=== PATIENT | female | born 1960 | race Caucasian/White ===

== ENCOUNTER 2017-11-02 09:47 | Emergency (ER) | payer OTHER ==
[2017-11-02 10:05] VITALS: BP 166/106
--- NOTE | 2017-11-02 11:00 | UC ---
Skin Complaint HPI - History of Current Complaint Chief Complaint: UCAllergicReaction Time Seen by Provider: 11/02/17 10:28 Stated Complaint: RASH Hx Obtained From: Patient Hx Last Menstrual Period: 12/11/12 ?: No Onset/Duration: Sudden Onset, Lasting Days Skin Exposure Onset/Duration: Days Ago Onset Severity: Moderate Current Severity: Mild Pain Intensity: 0 Location: Diffuse Character: Pruritus, Redness Aggravating Factor(s): Nothing Alleviating Factor(s): Antihistamines Associated Signs & Symptoms: Positive: Negative Related History: Recent change in medication - Allergy/Home Medications Allergies/Adverse Reactions: Allergies Allergy/AdvReac Type Severity Reaction Status Date / Time amoxicillin Allergy Severe Hives Verified 10/31/17 09:37 azithromycin Allergy Severe Hives Verified 10/31/17 09:37 clarithromycin Allergy Severe Hives Verified 10/31/17 09:37 red dye Allergy Severe Hives Verified 10/31/17 09:37 Sulfa (Sulfonamide Allergy Severe Hives Verified 10/31/17 09:37 Antibiotics) clindamycin Allergy anaph Verified 11/02/17 10:06 hydrocodone Allergy Nausea And Verified 10/31/17 09:37 Vomiting flexeril Allergy Severe Hives Uncoded 10/31/17 09:37 guafenisin Allergy Severe Hives Uncoded 10/31/17 09:37 latex Allergy Severe Rash And Uncoded 10/31/17 09:37 Itching penicllin Allergy Severe Hives Uncoded 10/31/17 09:37 metrondiazole Allergy Hives Uncoded 10/31/17 09:37 Review of Systems Constitutional: Negative Eyes: Eye Redness Respiratory: Negative All Other Systems Reviewed And Are Negative: Yes PMH/Surg Hx/FS Hx/Imm Hx Endocrine History: Diabetes - Surgical History Surgical History: Yes Surgery Procedure, Year, and Place: right foot 2004-pinned, 2010-left shoulder. 05/2013 RIGHT ROTATOR CUFF REPAIR [place]. 1989 D+C - Family History Known Family History: Negative: Cardiac Disease, Hypertension, Diabetes Family History: No FHx of breast CA - Social History Alcohol Use: Occasionally Alcohol Amount: 1/WEEK Substance Use Type: None Smoking Status (MU): Never Smoked Tobacco - Immunization History Most Recent Influenza Vaccination: none Physical Exam Triage Information Reviewed: Yes Vital Signs: Initial Vital Signs Temp 98 F 11/02/17 10:02 Pulse 65 06/23/18 10:02 Resp 16 11/02/17 10:02 BP 166/106 11/02/17 10:02 Pulse Ox 100 11/02/17 10:02 Vital Signs Reviewed: Yes Eyes: Positive: Conjunctiva Clear, Other: - mild bipalpebral edema ENT: Positive: Hearing grossly normal, Pharynx normal Neck: Positive: Supple, Nontender, No Lymphadenopathy Respiratory: Positive: Chest non-tender, Lungs clear, Normal breath sounds, No respiratory distress Cardiovascular: Positive: RRR, No Murmur, Pulses Normal, Brisk Capillary Refill Abdomen Description: Positive: No Organomegaly, Soft, Bruit Bowel Sounds: Positive: Present Musculoskeletal Exam: Normal Skin Exam: Other - generalized hives on extremities and trunk Course/Dx - Course Course Of Treatment: Patient who was treated for urticaria 3 days ago after taking clindamycin, patient on day 2 of prednisone, she states she continues to have the itchy rash and this morning her eyes were swollen, but swelling reversed after prednisone dose. Discussed with patient change in medications, zantac will substitute pepcid, atarax will substitute benadryl, continue prednison, start singulair, and stop all unnecessary supplements and vitamins. F /u with yard truck driver/PCP if urticaria persists for other manager intermediate medications - Diagnoses Provider Diagnoses: elevated BP without history of HTN. Urticaria Discharge - Sign-Out/Discharge Documenting (check all that apply): Discharge/Admit/Transfer - Discharge Plan Condition: Good Disposition: HOME Prescriptions: hydrOXYzine HCL TAB* [Atarax 25 MG TAB*] 25 mg PO TID PRN 10 Days #30 tab PRN Reason: Itching Montelukast Sodium TAB* [Singulair 10 MG TAB*] 10 mg PO BEDTIME 30 Days #30 tab Ranitidine TAB (NF) [Zantac TAB (NF)] 300 mg PO DAILY #30 tab Patient Education Materials: Ranitidine (By mouth), Hydroxyzine (By mouth), Montelukast (By mouth), Urticaria (ED) Referrals: Lg Casey MD [Primary Care Provider] - Additional Instructions: Since zantac has worked in the past, please stop pepcid and start zantac 300mg once a day Stop benadryl. INstead, you will get a new antihistamine hydroxyzine 25mg three times a day You will get a new medication called monterlukast 10mg to be taken at night Continue the prednisone Stop all vitamins and supplements - Billing Disposition and Condition Condition: GOOD Disposition: Home
== END 2017-11-02 11:09 | disposition home or self-care (01) ==
LOC: UCEAST 09:47
DX: L50.9 Urticaria, unspecified (principal); R03.0 Elevated blood-pressure reading, without diagnosis of hypertension; E11.9 Type 2 diabetes mellitus without complications; Z88.0 Allergy status to penicillin; Z88.2 Allergy status to sulfonamides; Z88.1 Allergy status to other antibiotic agents; Z91.040 Latex allergy status
CPT/HCPCS: 99212; G0463

== ENCOUNTER → 2018-12-03 10:04 | Day surgery (SDC) | payer OTHER ==
[~2018-12-03 10:04] MED LIST: Acetaminophen IV 1GM/100ML * 100 ML ONE; Buffered Lidocaine 1% SYRIN* 1 ML/SYRINGE INTRADERM ONE; Clindamycin 900 MG IVPREMIX(* 0 MG/0 ML SDV IV ONE; Dexamethasone IV* 4 MG/ML 1 ML (4 MG) ONE; DiMENhydriNATE IV* 50 MG/ML VIAL IV PUSH PRN; EPHEDrine (Pressors)* 50 MG/ML VIAL ONE; Glycopyrrolate IV* 0.2 MG/ML 1 ML VIAL ONE; HYDROmorphone INJ1* 1 MG/ML SYRINGE ONE; Ketorolac INJ* 30 MG/ML 1 ML VIAL ONE; Lactated Ringers 1000 ML Bag* 1,000 ML IV SCH; Lidocaine 2% PF * 5 ML VIAL ONE; Metoclopramide IV* 5 MG/ML 2 ML VIAL ONE; Midazolam* 1 MG/ML 2 ML VIAL (2 MG) ONE; Naloxone* 0.4 MG/ML 1 ML VIAL IV PRN; Neostigmine Methylsulfate* 1 MG/ML 10 ML VIAL (1 mg/ml) ONE; Ondansetron INJ* 2 MG/ML VIAL ONE; Propofol* 10 MG/ML 20 ML BTL ONE; Rocuronium* 10 MG/ML VIAL ONE; ceFAZolin 2 GM in NS PREMIX(*) 2 GM/100 ML BAG IVPB ONE; fentaNYL* 50 MCG/ML 2 ML VIAL (100 MCG VIAL) ONE; oxyCODONE TAB* 5 MG TAB ONE
[2018-12-03] MEDS: HYDROmorphone INJ1* 1 MG/ML SYRINGE IV PRN ×5 (14:51→15:12)
[2018-12-03] MEDS: oxyCODONE TAB* 5 MG TAB PO PRN ×2 (14:51→15:13)
[2018-12-03 15:37] VITALS: BP 145/97
--- NOTE | 2018-12-04 01:02 | OP ---
CC: PCP * DATE OF OPERATION: 12/03/18 - SDS DATE OF : 62 SURGEON: Tina Noriega MD. POWER ORIGINATOR: MARY Pacheco. An assistant facility manager was needed for the rotator cuff repair portion of this case. ANESTHESIOLOGIST: Dr. Merino. ANESTHESIA: General, interscalene block. 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 POST-OP DIAGNOSES: Left shoulder posttraumatic arthritis with partial- thickness tear of the rotator cuff, loose body, and retained hardware. OPERATIVE PROCEDURE: Left shoulder arthroscopy with: 1. Extensive glenohumeral debridement with acromioplasty. 2. Removal of loose body greater than 5 mm. 3. Subacromial decompression with acromioplasty. 4. Rotator cuff repair using Regeneten patch. 5. Lysis of adhesions. INDICATIONS: Earnestine Balbuena is a 58-year-old female with a complicated shoulder history in that she had a traumatic glenoid fracture that was fixed with an ORIF in 2011. She subsequently underwent frozen shoulder and had lysis of adhesions. She, in the last 6 months, has had significant pain which is laterally based pain and loss of motion. After extensive discussion of the risks, failing conservative management including physical therapy, antiinflammatories, ice and heat, she has elected to proceed with surgical treatment. We did talk about how she is a candidate for replacement and removal of hardware, but that is not what she wants to consider right now. She is also describing rotator cuff related pain. We talked about arthroscopic debridement as an option as she is very very young. Risks and benefits were discussed at length, which include, but not limited to bleeding; infection; damage to nerves, vessels, surrounding structures; wound nonhealing; persistent pain; need for further surgery; scarring; stiffness; incomplete relief of symptoms; risk of anesthesia. IMPLANTS USED: One Regeneten patch, size medium. DESCRIPTION OF PROCEDURE: The patient was greeted in the preoperative area by the attending surgeon. The correct extremity was marked and consent was confirmed. The patient underwent interscalene nerve block by anesthesiologist after which she was brought back to the operating suite where she was placed in supine position on the operating table. She then underwent general anesthesia with endotracheal intubation, after which she was placed in the right lateral decubitus position with an axillary roll and all bony prominences padded, she was secured with a pegboard. The left shoulder was then prepped and draped in the usual sterile fashion, beginning with chlorhexidine soap scrub and alcohol wipe and final prep with ChloraPrep. After appropriate surgical pause indicating site, side, procedure, and administration of antibiotics, a standard postero-lateral portal was then made sharply with an 11 blade. The scope was introduced into the joint, joint was examined. There was abundant synovitic changes and evidence of significant scar tissue, high-grade partial-thickness tearing of the undersurface of the supraspinatus tendon. The biceps was not visualized. There was a significant amount of scar tissue between the labrum and the capsule. There was grade 4 changes in the glenohumeral joint. One anterior portal was made in an outside fashion. There was abundant thick scar tissue that was present from a previous open surgery. Getting through this was quite challenging. A cannula was then placed. The shaver was used to debride back the anterior posterior and superior labrum. There was evidence of a previous metal screw that was placed that did not appear to be interfering in function, was not broken, but it was in the anterior aspect of the glenoid. The anterior posterior and superior labrum was debrided back. There was abundant scar tissue present. The electrocautery device was used to release some of the scar tissue anteriorly specifically. There was also evidence of a loose body that was identified and this was about 5 to 6 mm and was removed. Once this intraarticular work was completed, attention was directed to the subacromial space. With the scope in the subacromial space, the lateral portal was made in an outside- in fashion. The shaver was used to debride back the abundant tight bursa that was present. The undersurface of the acromion was skeletonized using electrocautery device. The 4.0 oval rosita was used to do an acromioplasty and to remove the anterolateral spur. After this was done, the cuff was gently probed. There was no evidence of full-thickness tear. Decision was made to treat her rotator cuff repair using a Regeneten patch. The Regeneten patch was then brought to the field. Size medium was chosen and placed under arthroscopic visualization. Through a second stab incision, a cannula was placed and medial jeanette were used to secure to the rotator cuff and then laterally the PEEK jeanette were used to secure to the bone. Final images were obtained. The wound was copiously irrigated with sterile saline. The portals were closed with 3-0 nylon. Sterile dressings were applied. A regular sling was applied. She was awoken from anesthesia and transferred to PACU in stable condition. POSTOPERATIVE PLAN: She will be nonweightbearing. She will start physical therapy right away. She will be discharged on pain medication and antibiotics to the degree of surgery. DVT prophylaxis was considered but deferred due to no previous personal history or family history. [id number]/[facility] #: [id number] [facility]
== END | disposition home or self-care (01) ==
LOC: OR 10:04
PROVIDERS: ATTEND Orthopaedic Surgery
DX: S46.012A Strain of muscle(s) and tendon(s) of the rotator cuff of left shoulder, initial encounter (principal); M19.112 Post-traumatic osteoarthritis, left shoulder; M25.512 Pain in left shoulder; Z88.0 Allergy status to penicillin; Z88.8 Allergy status to other drugs, medicaments and biological substances; E11.9 Type 2 diabetes mellitus without complications; Z79.84 Long term (current) use of oral hypoglycemic drugs; G89.18 Other acute postprocedural pain; X58.XXXA Exposure to other specified factors, initial encounter; Y92.9 Unspecified place or not applicable
CPT/HCPCS: A9270-GY; C1713; J0690; J1100; J1170; J1885; J2250; J2405; J2704; J2710; J2765; J3010

== ENCOUNTER 2019-03-11 05:36 | Inpatient (IN) | payer OTHER ==
[~2019-03-11 05:36] MED LIST changes: -Acetaminophen IV 1GM/100ML * 100 ML ONE; -Clindamycin 900 MG IVPREMIX(* 0 MG/0 ML SDV IV ONE; -Dexamethasone IV* 4 MG/ML 1 ML (4 MG) ONE; -DiMENhydriNATE IV* 50 MG/ML VIAL IV PUSH PRN; -EPHEDrine (Pressors)* 50 MG/ML VIAL ONE; -Glycopyrrolate IV* 0.2 MG/ML 1 ML VIAL ONE; -HYDROmorphone INJ1* 1 MG/ML SYRINGE ONE; -Ketorolac INJ* 30 MG/ML 1 ML VIAL ONE; -Lactated Ringers 1000 ML Bag* 1,000 ML IV SCH; -Lidocaine 2% PF * 5 ML VIAL ONE; -Metoclopramide IV* 5 MG/ML 2 ML VIAL ONE; -Midazolam* 1 MG/ML 2 ML VIAL (2 MG) ONE; -Naloxone* 0.4 MG/ML 1 ML VIAL IV PRN; -Neostigmine Methylsulfate* 1 MG/ML 10 ML VIAL (1 mg/ml) ONE; -Ondansetron INJ* 2 MG/ML VIAL ONE; -Propofol* 10 MG/ML 20 ML BTL ONE; -Rocuronium* 10 MG/ML VIAL ONE; -ceFAZolin 2 GM in NS PREMIX(*) 2 GM/100 ML BAG IVPB ONE; -fentaNYL* 50 MCG/ML 2 ML VIAL (100 MCG VIAL) ONE; -oxyCODONE TAB* 5 MG TAB ONE
--- OUTSIDE RECORDS SUMMARY | 2019-03-11 05:40 | XMS REPORT | Continuity of Care Document ---
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 Onset: 02/23/2015 Localized, primary osteoarthritis of the Tina Noriega MD Onset: 10/23/2018 shoulder region Strain of rotator cuff capsule Tina Noriega MD Onset: 10/23/2018 Rotator cuff tear arthropathy Tina Noriega MD Onset: 01/13/2019 Social History Type Date Description Comments Sex Unknown ETOH Use Occasionally consumes alcohol Tobacco Use Start: Unknown Patient has never smoked Smoking Status Reviewed: 01/13/19 Patient has never smoked Allergies, Adverse Reactions, Alerts Active Allergies Reaction Severity Comments Date Sulfa Antibiotics 02/23/2015 Penicillins 02/23/2015 Trimox 02/23/2015 Amoxicillin 02/23/2015 Zithromax 02/23/2015 Metronidazole 02/23/2015 Guaifenesin 02/23/2015 Latex 02/23/2015 Flexeril 02/23/2015 Red Dye 02/23/2015 Medications Active Medications SIG Qnty Indications Ordering Provider Date Alegra qd Unknown Nasacort Allergy 1 spray in each Unknown 24HR nostril daily prn 55mcg/Act Aerosol Meloxicam Take 1 Tablet By Unknown 7.5mg Mouth Every Day For Tablets Pain And Inflamation as Needed. Take With Food Olopatadine HCL Instill 1 Drop Into Unknown 0.2% Affected Eye Every Solution Day as Needed For Allergies Metformin HCL Unknown 500mg Tablets Hydroxyzine HCL Take 1 Tablet By Unknown 25mg Mouth Three Times A Tablets Day as Needed For Itching-Stop Benadryl History Medications Percocet 1 tabs by mouth 20tabs Tina Noriega MD 12/03/2018 - 5-325mg every 4-6 hours as 01/12/2019 Tablets needed pain Keflex take 1 tab by 12caps Tina Noriega MD 12/03/2018 - 500mg Capsules mouth four times a 01/12/2019 day x 3 days post op Medications Administered in Office Medication SIG Qnty Indications Ordering Provider Date Triamcinolone (Kenalog) Tina Noriega MD 10/23/2018 Injection Immunizations Description No Information Available Vital Signs Date Vital Result Comment 01/13/2019 8:16am Height 60 inches 5'0" Weight 225.00 lb Heart Rate 87 /min BP Systolic 144 mmHg BP Diastolic 80 mmHg Body Temperature 99.0 F Pain Level 5 BMI (Body Mass Index) 43.9 kg/m2 12/15/2018 8:08am Height 60 inches 5'0" Weight 225.00 lb BP Systolic 138 mmHg BP Diastolic 82 mmHg Respiratory Rate 18 /min Body Temperature 99.0 F Pain Level 0 BMI (Body Mass Index) 43.9 kg/m2 Results Test Date Facility Test Result H/L Range Note Laboratory test 12/03/2018 [facility] 130 mg/dL High 70-100 [address] [place] [address] [phone] Laboratory test 12/03/2018 [facility] 112 mg/dL High 70-100 [address] [place], [place] [id number] [phone] Allopathic Doctor: [id number] Allopathic Doctor: [id number] Procedures Date Code Description Status 12/03/2018 41974 Arthroscopy Shoulder,W/Rotator Cuff Repair Completed 12/03/2018 49844 Arthroscopy Shoulder,W/Rotator Cuff Repair Completed 12/03/2018 67556 Arthroscopy,Shoulder Decompression Of Subacromial Space Completed W/Acromio 12/03/2018 33161 Arthroscopy,Shoulder Decompression Of Subacromial Space Completed W/Acromio 10/23/2018 07576 Inj/Aspir Major JT Or Bursa W/ US Completed Medical Devices Description No Information Available Encounters Type Date Location Provider Dx Diagnosis Office Visit 11/11/2018 Viola Noriega MD S46.012A Strain of 1:[facility]p [facility]/tend the rotator cuff of left shoulder, init M19.112 Post-traumatic osteoarthritis, left shoulder M25.512 Pain in left shoulder Office Visit 10/23/2018 8:45a Orthopedic Tina Noriega S46.012A Strain of [facility] av[facility]/tend the [facility] rotator cuff of left shoulder, init M19.112 Post-traumatic osteoarthritis, left shoulder Office Visit 10/07/2018 1:00p Orthopedic Tina Noriega M25.512 Pain in left [facility] S46.012A Strain of [place]/tend the rotator cuff of left shoulder, init M19.012 Primary osteoarthritis, left shoulder Assessments Date Code Description Provider 01/13/2019 M19.112 Post-traumatic osteoarthritis, left Tina Noriega MD shoulder 12/15/2018 S46.012D Strain of muscle(s) and tendon(s) of the Zina Conn PA-C rotator cuff of left shoulder, subsequent encounter 12/15/2018 M19.112 Post-traumatic osteoarthritis, left MARY Pacheco shoulder 12/03/2018 S46.012A Strain of muscle(s) and tendon(s) of the Zina Conn PA-C rotator cuff of lef 12/03/2018 M19.112 Post-traumatic osteoarthritis, left Tina Noriega MD shoulder 12/03/2018 M19.112 Post-traumatic osteoarthritis, left MARY Pacheco shoulder 12/03/2018 S46.012A Strain of muscle(s) and tendon(s) of the Tina Noriega MD rotator cuff of lef 11/11/2018 S46.012A Strain of muscle(s) and tendon(s) of the Tina Noriega MD rotator cuff of lef 11/11/2018 M19.112 Post-traumatic osteoarthritis, left Tina Noriega MD shoulder 11/11/2018 M25.512 Pain in left shoulder Tina Noriega MD 10/23/2018 S46.012A Strain of muscle(s) and tendon(s) of the Tina Noriega MD rotator cuff of lef 10/23/2018 M19.112 Post-traumatic osteoarthritis, left Tina Noriega MD shoulder 10/07/2018 M25.512 Pain in left shoulder Tina Noriega MD 10/07/2018 S46.012A Strain of muscle(s) and tendon(s) of the Tina Noriega MD rotator cuff of [facility] 10/07/2018 M19.012 Primary osteoarthritis, left shoulder Tina Noriega MD Plan of Treatment Future Appointment(s):02/12/2019 8:15 am - Tina Noriega MD at [facility]01/13/2019 - Tina Noriega MDM19.112 Post-traumatic osteoarthritis, left shoulderFollow up:Follow up: 4 weeks Functional Status Description No Information Available Mental Status Description No Information Available Referrals Description No Information Available
--- OUTSIDE RECORDS SUMMARY | 2019-03-11 05:40 | XMS REPORT | Continuity of Care Document ---
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 Problems Provider Date Common peroneal [...] Patient has never smoked Smoking Status Reviewed: 02/26/19 Patient has never smoked Allergies, Adverse Reactions, Alerts Active Allergies Reaction Severity Comments Date Sulfa Antibiotics 02/23/2015 Penicillins 02/23/2015 Trimox 02/23/2015 Amoxicillin 02/23/2015 Zithromax 02/23/2015 Metronidazole 02/23/2015 Guaifenesin 02/23/2015 Latex 02/23/2015 Flexeril 02/23/2015 Red Dye 02/23/2015 Medications Active Medications SIG Qnty Indications Ordering Provider Date Alegra qd Unknown Nasacort Allergy 24HR 1 spray in each Unknown nostril daily prn 55mcg/Act Aerosol Olopatadine HCL Instill 1 Drop Into Unknown [...] Available Vital Signs Date Vital Result Comment 02/26/2019 9:02am Height 60 inches 5'0" Weight 211.00 lb Heart Rate 102 /min BP Systolic 142 mmHg BP Diastolic 82 mmHg Body Temperature 99.0 F Pain Level 2 BMI (Body Mass Index) 41.2 kg/m2 01/13/2019 8:16am Height 60 inches 5'0" Weight 225.00 lb Heart Rate 87 /min BP Systolic 144 mmHg BP Diastolic 80 mmHg Body Temperature 99.0 F Pain Level 5 BMI (Body Mass Index) 43.9 kg/m2 Results Test Date Facility Test Result H/L Range Note Laboratory test 12/03/2018 [facility] 130 mg/dL High 70-100 [address] [place] [address] [phone] Laboratory test 12/03/2018 [facility] 112 mg/dL High 70-100 [address] [place] [address] [phone] Plastic Roller: [id number] 2 Plastic Roller: [id number] Procedures Date Code Description Status 12/03/2018 00639 Arthroscopy Shoulder,W/Rotator Cuff Repair Completed 12/03/2018 69988 Arthroscopy Shoulder,W/Rotator Cuff Repair Completed 12/03/2018 33373 Arthroscopy,Shoulder Decompression Of Subacromial Space Completed W/Acromio 12/03/2018 80126 Arthroscopy,Shoulder Decompression Of Subacromial Space Completed W/Acromio 10/23/201866351 Inj/Aspir Major JT Or Bursa W/ US Completed Medical Devices Description No Information Available Encounters Type Date Location Provider Dx Diagnosis Office Visit 11/11/2018 Rica Noriega MD S46.012A Strain of 1:15p at [facility] musc/tend the rotator cuff of left shoulder, init M19.112 Post-traumatic osteoarthritis, left shoulder M25.512 Pain in left shoulder Office Visit 10/23/2018 8:45a Rica Noriega S46.012A Strain of at [facility] musc/tend the rotator cuff of left shoulder, init M19.112 Post-traumatic osteoarthritis, left shoulder Office Visit 10/07/2018 1:00p Rica Noriega M25.512 Pain in left at [facility] MD shoulder S46.012A Strain of [place]/tend the rotator cuff of left shoulder, init M19.012 Primary osteoarthritis, left shoulder Assessments Date Code Description Provider 02/26/2019 M19.112 Post-traumatic osteoarthritis, left Tina Noriega MD shoulder 02/26/2019 S46.012D Strain of muscle(s) and tendon(s) of the Tina Noriega MD rotator cuff of left shoulder, subsequent encounter 01/15/2019 M19.112 Post-traumatic osteoarthritis, left Tina Noriega MD shoulder 01/13/2019 M19.112 Post-traumatic osteoarthritis, left Tina Noriega MD shoulder 01/13/2019 Z47.89 Encounter for other orthopedic aftercare Tina Noriega MD 12/15/2018 S46.012D Strain of muscle(s) and tendon(s) [...] the Tina Noriega MD rotator cuff of [facility] 10/07/2018 M19.012 Primary osteoarthritis, left shoulder Tina Noriega MD Plan of Treatment Future Appointment(s):03/24/2019 8:45 am - Tina Noriega MD at [facility] at [id number]/11/2019 7:30 am - Zina Conn PA-C at [facility] at [id number]/11/2019 7:30 am - Tina Noriega MD at [facility] at [id number]/26/2019 - Tina Noriega, MDM19.112 Post-traumatic osteoarthritis, left shoulderFollow up:Follow up: 10-14 days post opS46.012D Strain of muscle(s) and tendon(s) of the rotator cuff of left shoulder, subsequent encounter Functional Status Description No Information Available Mental Status Description No Information Available Referrals Description No Information Available
--- OUTSIDE RECORDS SUMMARY | 2019-03-11 05:40 | XMS REPORT | Continuity of Care Document ---
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 [phone] Problems Active Problems Provider Date Common peroneal [...] Date Facility Test Result H/L Range Note CBC Auto 02/26/2019 [facility] White Blood 8.2 10^3/uL Normal 3.5-10.[address] [place], [place] [id number] [phone] Red Blood Count 4.22 10^6/uL Normal 3.70-4.87 Hemoglobin 11.6 g/dL Low 12.0-16.0 Hematocrit 35 % Normal 35-47 Mean Corpuscular Volume 83 fL Normal 80-97 Mean Corpuscular Hemoglobin 28 pg Normal 27-31 Mean Corpuscular HGB Conc 33 g/dL Normal 31-36 Red Cell Distribution Width 16 % High 10-15 Platelet Count 301 10^3/uL Normal 150-450 Mean Platelet Volume 8.8 fL Normal 7.4-10.4 Abs Neutrophils 6.1 10^3/uL Normal 1.5-7.7 Abs Lymphocytes 1.4 10^3/uL Normal 1.0-4.8 Abs Monocytes 0.4 10^3/uL Normal 0-0.8 Abs Eosinophils 0.2 10^3/uL Normal 0-0.6 Abs Basophils 0.1 10^3/uL Normal 0-0.2 Abs Nucleated RBC 0.0 10^3/uL Granulocyte % 74.4 % Lymphocyte % 17.0 % Monocyte % 5.3 % Eosinophil % 1.9 % Basophil % 1.4 % Nucleated Red Blood Cells % 0.0 Inr/Protime 02/26/2019 [facility] Inr 0.94 Normal 0.82-1.[address] [place] [address] [phone] Laboratory test 02/26/2019 [facility] Partial 34.8 seconds Normal 26.0-38.[address] [place] [address] Time PTT [phone] Urinalysis 02/26/2019 [facility] Urine Colorless Profile [address] [place] [address] [phone] Urine Appearance Cloudy Urine Specific Walsh 1.004 Low 1.010-1.030 Urine pH 6.0 Normal 5-9 Urine Urobilinogen Negative Negative Urine Ketones Negative Negative Urine Protein Negative Negative Urine Leukocytes Trace Abnormal Negative Urine Blood Negative Negative Urine Nitrite Negative Negative Urine Bilirubin Negative Negative Urine Glucose Negative Negative Urine White Blood Cell Trace(0-5/hpf) Absent Urine Red Blood Cell Trace(0-2/hpf) Absent Urine Bacteria Absent Absent Urine Squamous Epithelial Cell Present Abnormal Absent Laboratory test 12/03/2018 [facility] Point of Care 130 mg/dL High 70-100 [address] [place] [address] [phone] Laboratory test 12/03/2018 [facility] Point of Care 112 mg/dL High 70-100 [address] [place] [address] [phone] Standard intensity warfarin therapeutic range: 2.0-3.0 High intensity warfarin therapeutic range: 2.5-3.5 2 Chair Car Attendant: [id number] Chair Car Attendant: [id number] Procedures Date Code Description Status 12/03/2018 94781 Arthroscopy Shoulder,W/Rotator Cuff Repair Completed 12/03/2018 75337 Arthroscopy Shoulder,W/Rotator Cuff Repair Completed 12/03/2018 15263 Arthroscopy,Shoulder Decompression Of Subacromial Space Completed W/Acromio 12/03/2018 29546 Arthroscopy,Shoulder Decompression Of Subacromial Space Completed W/Acromio 10/23/2018 39594 Inj/Aspir Major JT Or Bursa W/ US Completed Medical Devices Description No Information Available Encounters Type Date Location Provider Dx Diagnosis Office Visit 11/11/2018 Rica Noriega MD S46.012A Strain of 1:15p at [place] musc/tend the rotator cuff of left shoulder, init M19.112 Post-traumatic osteoarthritis, left shoulder M25.512 Pain in left shoulder Office Visit 10/23/2018 8:45a Rica Noriega S46.012A Strain of at [place] MD avila/tend the rotator cuff of left shoulder, init M19.112 Post-traumatic osteoarthritis, left shoulder Office Visit 10/07/2018 1:00p Rica Noriega M25.512 Pain in left at [place] shoulder S46.012A Strain of [place]/tend the rotator [...] the Tina Noriega MD rotator cuff of [facility] 10/23/2018 M19.112 Post-traumatic osteoarthritis, left Tina Noriega MD shoulder 10/07/2018 M25.512 Pain in left shoulder Tina Noriega MD 10/07/2018 S46.012A Strain of muscle(s) and tendon(s) of the Tina Noriega MD rotator cuff of [facility] 10/07/2018 M19.012 Primary osteoarthritis, left shoulder Tina Noriega MD Plan of Treatment Future Appointment(s):03/24/2019 8:45 am - Tina Noriega MD at [facility] at [place]/11/2019 7:30 am - Zina Conn PA-C at [facility] at [place]0803/11/2019 7:30 am - Tina Noriega MD at [facility] at [place]9202/26/2019 - Tina Noriega MDM19.112 Post-traumatic osteoarthritis, left shoulderFollow up:Follow up: 10-14 days post opS46.012D Strain of muscle(s) and tendon(s) of the rotator cuff of left shoulder, subsequent encounter Functional Status Description No Information Available Mental Status Description No Information Available Referrals Description No Information Available
[2019-03-11] MEDS ORDERED: Lactated Ringers 1000 ML Bag* 1,000 ML IV SCH ×2 (06:00)
[2019-03-11] MEDS ORDERED: Dexamethasone IV* 4 MG/ML 1 ML (4 MG) IV SLOW PU ONE (06:00)
[2019-03-11] MEDS ORDERED: Dexamethasone IV* 4 MG/ML 1 ML (4 MG) ONE (06:06)
[2019-03-11] MEDS ORDERED: Clindamycin 900 MG/D5W BAG(*) 0 MG/0 ML BAG IVPB ONE (06:06)
[2019-03-11] MEDS ORDERED: Buffered Lidocaine 1% SYRIN* 1 ML/SYRINGE INTRADERM ONE (06:06)
[2019-03-11] MEDS ORDERED: ceFAZolin 2 GM PREMIX in ORs 2 GM/50 ML BAG ONE (06:35)
[2019-03-11] MEDS ORDERED: ROPIVACAINE 5 MG/ML 30 ML BTL (0.5%) ONE (07:00)
[2019-03-11] MEDS ORDERED: Propofol* 10 MG/ML 20 ML BTL ONE (07:15)
[2019-03-11] MEDS ORDERED: Midazolam* 1 MG/ML 5 ML VIAL (5 MG) ONE (07:16)
[2019-03-11] MEDS ORDERED: fentaNYL* 50 MCG/ML 2 ML VIAL (100 MCG VIAL) ONE ×2 (07:16→10:03)
[2019-03-11] MEDS ORDERED: Rocuronium* 10 MG/ML VIAL ONE ×2 (07:16→08:58)
[2019-03-11] MEDS ORDERED: Bupivacaine 0.25% SDV* 30 ML ONE (07:21)
[2019-03-11] MEDS ORDERED: Lidocaine 2% PF * 5 ML VIAL ONE (07:59)
[2019-03-11] MEDS ORDERED: Ondansetron INJ* 2 MG/ML VIAL IV PRN ×2 (08:45→10:03)
[2019-03-11] MEDS ORDERED: Naloxone* 0.4 MG/ML 1 ML VIAL IV PRN (08:45)
[2019-03-11] MEDS ORDERED: DiMENhydriNATE IV* 50 MG/ML VIAL IV PUSH PRN (08:45)
[2019-03-11] MEDS ORDERED: HYDROmorphone INJ1* 1 MG/ML SYRINGE IV PRN (08:45)
[2019-03-11] MEDS ORDERED: oxyCODONE/Acetamin 5/325 MG* TAB PO PRN ×2 (08:45→10:03)
[2019-03-11] MEDS ORDERED: Ketorolac INJ* 30 MG/ML 1 ML VIAL ONE (09:29)
[2019-03-11] MEDS ORDERED: Ondansetron INJ* 2 MG/ML VIAL ONE (09:30)
[2019-03-11] MEDS ORDERED: Sugammadex * 200 MG/2 ML VIAL IV PUSH ONE (09:34)
[2019-03-11] MEDS: fentaNYL* 50 MCG/ML 2 ML VIAL (100 MCG VIAL) IV PRN ×2 (10:02→10:22)
[2019-03-11] MEDS ORDERED: Magnesium Hydroxide LIQ* 30 ML UDC PO PRN (10:03)
[2019-03-11] MEDS ORDERED: diPHENhydraMINE IV* 50 MG/ML 1 ml VIAL (BENADRYL) IV PRN (10:03)
[2019-03-11] MEDS ORDERED: Morphine INJ* 2 MG/ML 1 ML SYRINGE (TWO MG - NEW SYRINGE VERSION) IV PRN (10:03)
[2019-03-11] MEDS ORDERED: Cyclobenzaprine TAB* 10 MG PO PRN (10:03)
[2019-03-11] MEDS ORDERED: traZODone TAB* 50 MG TAB PO PRN (10:03)
[2019-03-11] MEDS ORDERED: Polyethylene Glycol 3350* 17 GM PACKET PO PRN (10:03)
[2019-03-11] MEDS ORDERED: diPHENhydraMINE PO* 25 MG PO PRN (10:03)
[2019-03-11] MEDS ORDERED: oxyCODONE TAB* 5 MG TAB PO PRN (10:03)
[2019-03-11] MEDS ORDERED: Ondansetron ODT TAB* 4 MG PO PRN (10:03)
[2019-03-11] MEDS ORDERED: Dextrose 50% VIAL 50 ml IV PUSH PRN (10:10)
[2019-03-11] MEDS ORDERED: Olopatadine 0.2% (NF) 1 DROP BTL BOTH EYES PRN (10:12)
[2019-03-11] MEDS ORDERED: Pantoprazole TAB * 40 MG TAB PO PRN (10:12)
[2019-03-11] MEDS ORDERED: Fluticasone NASAL SPRAY 50MCG* 16 gm SPRAY BTL BOTH NARES PRN (10:12)
[2019-03-11] MEDS ORDERED: EPINEPHRINE 1 MG/ML 1 ML VIAL IM PRN (10:15)
[2019-03-11] MEDS ORDERED: HYDROmorphone INJ1* 1 MG/ML SYRINGE ONE (10:40)
[2019-03-11] MEDS ORDERED: oxyCODONE/Acetamin 5/325 MG* TAB ONE (10:55)
--- NOTE | 2019-03-11 11:20 | OP ---
CC: PCP, Dr. Casey * DATE OF OPERATION: 03/11/19 - ROOM #342 DATE OF : 62 ATTENDING SURGEON: Tina Noriega MD. LINK CUTTER: MARY Pacheco. An casting assistant was needed for the entirety of the case to help with positioning, retraction, and utilized throughout all portions of the case. ANESTHESIOLOGIST: Dr. Martinez. ANESTHESIA: General interscalene block. PRE-OP DIAGNOSIS: Left shoulder retained hardware and severe posttraumatic glenohumeral arthritis with partial-thickness tearing of the rotator cuff. POST-OP DIAGNOSIS: Left shoulder retained hardware and severe posttraumatic glenohumeral arthritis with partial-thickness tearing of the rotator cuff. OPERATIVE PROCEDURE: Left shoulder removal of hardware x2 screws and reverse replacement. COMPLICATIONS: None. ESTIMATED BLOOD LOSS: 150 IMPLANTS USED: Aequalis Reversed II size 25 x 35 threaded post baseplate, size 36 glenosphere, Ascend Flex centered 4B stem with a +6 poly and centered tray. OUTPUT DRAIN: x1. INDICATIONS: Earnestine Balbuena is a 58-year-old female who had a history of an ORIF of her glenoid several years ago. She had posttraumatic arthritis. We did scope her. She had some rotator cuff changes and some partial-thickness tearing. She had persistent pain. She had loss of motion. She has external rotation to 20 degrees and forward flexion to about 95 degrees. She did fail conservative management and elected to proceed with surgical treatment. Risks and benefits were discussed at length, included but not limited to, bleeding; infection; damage to nerves, vessels, surrounding structures; wound nonhealing; persistent pain; need for surgery; scaring; stiffness; incomplete relief of symptoms; risks of anesthesia; fracture; dislocation; and need for further surgery. DESCRIPTION OF PROCEDURE: The patient was greeted in the preoperative area by the attending surgeon. Correct extremity was marked. Consent was confirmed. The patient underwent interscalene nerve block by the anesthesiologist, after which she was brought back to the operative suite, placed in the supine position on the operating room table. She then underwent general anesthesia with endotracheal intubation, after which she was placed in a lazy beach chair position. The left shoulder was then prepped and draped in the usual sterile fashion beginning with chlorhexidine soap, scrub, and alcohol wipe and a final prep with ChloraPrep. After appropriate surgical pause indicating site, side, procedure, and administration of antibiotics, a deltopectoral incision was then made with a 15 blade. Soft tissues were carefully dissected to expose the deltopectoral interval. Cephalic vein was identified and taken laterally over the deltoid. There was abundant scar tissue that we needed to get through. As the subdeltoid adhesions were released, the humeral head was exposed. The biceps had been previously tenotomized. The subscap was identified, it was very short and retracted. There was abundant thick scar. The subscap was obviously scarred to the undersurface of the conjoint tendon. As the subscap was released , the head was exposed. There was a high-grade partial-thickness tearing of the supraspinatus and this was also released. Decision was made to proceed with reverse. The osteophytes were removed. A freehand neck cut was then made. The starting awl was then used to find the canal. Broaching began, size 4B was found to have a good fit. Protection plate was placed and attention was directed to the glenoid. The glenoid was then carefully exposed. The subscap again was not able to be tagged. It was very scarred to the conjoint and then decision was made to try to get the hardware out from the glenoid space, so after careful dissection, two 4.0 cannulated screws were then removed entirely as well as the washer. Then attention was directed to the remainder of the glenoid. The anterior, posterior, superior labrum was released. The glenoid was exposed. The guide was then placed into the glenoid. A guidewire was placed, size 25-mm reamer was then used to ream and then hand reaming was done with a 36-mm reamer. An 8- mm cannulated drill guide was used to drill, 6.5-mm drill bit was then drilled. The drill hole measured about 29 to 30. A size 35 was chosen. The screw hole was tapped. The final implant was placed. Four interlocking screws were placed with cortical purchase and good purchase. The glenosphere was then packed into position and secured with a set screw. Attention was directed back to the humeral head. The head was brought back to the wound, the stem was checked again. Trialing began. A size 4B centered tray and a +6 poly was then used with appropriate shuck. External rotation to about 50 degrees, forward flexion to about 150 degrees, abduction to 90, and internal rotation to the posterior hip. The final implants were then chosen. The shoulder was dislocated. The final implants were prepared in the back table and impacted by the attending surgeon. Shoulder was reduced again, taken thorough range of motion, was symmetric. The wound was copiously irrigated with sterile saline. Intraarticular drain was placed, the deltopectoral interval was closed with #2 Ethibond in an interrupted fashion. Wounds were irrigated again. Skin was closed in layers with 3-0 Monocryl for subcutaneous and 3-0 Monocryl running. Sterile dressings, Cryo/Cuff, and UltraSling were applied. She was awoken from anesthesia and transferred to PACU in stable condition. POSTOPERATIVE PLAN: She will be nonweightbearing, in sling for 6 weeks. Started on therapy postop day 1. 24 hours of postoperative antibiotics. Discharged on postop day 1 with the drain pulled. DVT prophylaxis will be Lovenox while inhouse, discharged without anything. I will see the patient back in 10 to 14 days. [id number]/[facility] #: [id number] [facility]
[2019-03-11] MEDS: Lactated Ringers 1000 ML Bag* 1,000 ML IV SCH (12:01)
[2019-03-11] MEDS: traMADol TAB* 50 MG PO PRN ×2 (12:13→19:50)
[2019-03-11] MEDS: Insulin LISPRO* 1 UNITS UNIT SUBCUT SCH ×3 (12:43→21:19)
--- NOTE | 2019-03-11 13:15 | CONS ---
CONSULTATION REPORT: DATE OF CONSULT: 03/11/19 REASON FOR CONSULT: General co-medical management. REQUESTING PROVIDER: Dr. Noriega. HISTORY OF PRESENT ILLNESS: This is a 58-year-old female with a past medical history significant for type 2 diabetes, who was admitted on 03/11/19, status post left total shoulder replacement after failing outpatient therapy. The patient was seen in the PACU, awake, alert, and oriented, sitting up in the chair. States she feels quite well, in no pain at the moment, able to move her fingers. She has got good radial pulses. Denies any chest pain, shortness of breath, nausea, vomiting or issues moving her bowels or bladder. PAST MEDICAL HISTORY: Diabetes type 2, migraines, frozen shoulder, choriocarcinoma with chemotherapy. PAST SURGICAL HISTORY: Left shoulder ORIF, left shoulder lysis of adhesions for frozen shoulder, left shoulder arthroscopy, right foot surgery, and D and C x2. FAMILY HISTORY: Stroke, aneurysms, and breast cancer. SOCIAL HISTORY: She denies any tobacco or recreational substance use. She drinks very occasionally. Lives with her partner. MEDICATIONS: 1. Metformin 1000 mg p.o. b.i.d. 2. Triamcinolone nasal spray 1 mg intranasally daily p.r.n. 3. Omeprazole 20 mg p.o. daily p.r.n. 4. Olopatadine 0.2% 1 drop both eyes daily p.r.n. 5. Meloxicam 7.5 mg p.o. b.i.d. p.r.n. 6. Fexofenadine 180 mg p.o. q.a.m. 7. EpiPen 0.3 mg injection once. 8. Ascorbic acid 1000 mg p.o. q.a.m. ALLERGIES: The patient has allergies to AZITHROMYCIN, CLARITHROMYCIN, CLINDAMYCIN, eggs, RED DYE, SULFA, BACITRACIN, CYCLOBENZAPRINE, NEOMYCIN, POLYMYXIN B, HYDROCODONE, GUAIFENESIN, LATEX, METRONIDAZOLE, and PENICILLIN. REVIEW OF SYSTEMS: An 11-point systems review was performed and was positive for mild discomfort to the left shoulder. Negative for any chest pain, shortness of breath, abdominal pain, nausea, and vomiting. PHYSICAL EXAM: Vital Signs: 97.3 temp, 74 pulse, 15 resp, 98% oxygen on room air, 143/74 blood pressure. General: This is a well-developed obese woman seen sitting up in chair, in no acute distress noted. Eyes: Conjunctivae pink and moist. PERRLA. EOMs intact. ENT: Oropharynx clear. Mucous membranes moist. Neck: Supple. Cardiac: S1, S2 present. Heart rate regular. No murmurs, gallops, or rubs appreciated. Pulmonary: Lung sounds clear throughout bilaterally on room air. No accessory muscle use noted. Abdomen is large, soft, nontender with positive bowel sounds x4. Musculoskeletal: No clubbing or cyanosis noted. Able to move all fingers though range of motion limited to left shoulder due to orthopedic sling in place. +2 radial pulses bilaterally. Cap refill within 3 seconds. Skin: Dressing to left shoulder is clean, dry, and intact. No other open areas or rashes appreciated. Neuro: Sensation intact to light touch. No focal deficits appreciated. Psych: She is alert and oriented x3. Thought content organized. DIAGNOSTIC STUDIES/LAB DATA: POC glucose 124. Postoperative shoulder x-ray showed status post left total shoulder replacement surgery, prosthesis in proper position. ASSESSMENT AND PLAN: My impression, this is a 58-year-old female with a past medical history significant for diabetes type 2, who was admitted on 03/11/19, status post a left total shoulder replacement after failing a conservative outpatient therapy. 1. Status post left total shoulder replacement. PT/OT per Ortho as well as pain control and bowel regimen per Ortho. To keep ortho sling to left shoulder in place at all times to minimize movement to the left shoulder though encourage movement of left wrist and elbow occasionally throughout the day. 2. Diabetes type 2. Again, glucose was 124. We will hold metformin during stay in the hospital, do fingersticks. Fingerstick monitoring a.c. and h.s. with sliding scale, lispro coverage, may resume metformin upon discharge to home. 3. Gastroesophageal reflux disease. No reports of indigestion at this time. Continue omeprazole. 4. Allergic rhinitis. Continue triamcinolone nasal spray though denies current runny nose or sore throat. 5. DVT prophylaxis. SCDs and enoxaparin as per Ortho. 6. Code status is full code. Thank you for allowing us to participate in the care of this patient. We will follow during this admission. [id number]/[facility] #: [id number] [place]
[2019-03-11] MEDS: Acetaminophen TAB* 325 MG PO SCH ×2 (13:29→22:09)
--- NOTE | 2019-03-11 14:29 | PN ---
Progress Note - Progress Note Date of Service: 03/11/19 Note: Pt seen and examined. Doing ok. Ate lunch. Some discomfort from strap. Sling and drain in place. Temp Pulse Resp BP Pulse Ox 97.1 F 97 16 116/54 95 03/11/19 14:12 03/11/19 14:12 03/11/19 14:12 03/11/19 14:12 03/11/19 14:12 NAD. AAOX3. LUE: sling and dressing in place. drain in place. SILT grossly distally. brisk cap refill. able to flex/ext digits. XRAYs reviewed and acceptable A/P 58 yo F with left shoulder removal of hardware and reverse arthroplasty drain d/c tomorrow NWB PT/OT abigail while in hospital post op abx
[2019-03-11] MEDS: ceFAZolin 1 GM ADVAN(*) 1 GM in NS 0.9% 50 ML* 50 ML IVPB SCH (15:44)
[2019-03-11] MEDS: oxyCODONE/Acetamin 5/325 MG* TAB PO PRN ×2 (17:01→23:58)
[2019-03-11] MEDS: Docusate CAP* 100 MG PO SCH ×2 (21:20→21:23)
[2019-03-12] MEDS: Lactated Ringers 1000 ML Bag* 1,000 ML IV SCH (00:08)
[2019-03-12] MEDS: traMADol TAB* 50 MG PO PRN ×2 (02:50→08:51)
[2019-03-12] MEDS: oxyCODONE/Acetamin 5/325 MG* TAB PO PRN ×3 (04:01→13:05)
[2019-03-12] MEDS: Acetaminophen TAB* 325 MG PO SCH (06:01)
[2019-03-12 06:46] LABS: Hematocrit 25 % (35-47); Hemoglobin 8.3 g/dL (12.0-16.0); Mean Platelet Volume 8.3 fL (7.4-10.4); Platelet Count 234 10^3/uL (150-450)
[2019-03-12 07:15] LABS: Calcium 8.3 mg/dL (8.6-10.3); EGFR African American 74.3 (>60); EGFR Non-African American 61.4 (>60); Potassium 3.9 mmol/L (3.5-5.0)
[2019-03-12] MEDS: ceFAZolin 1 GM ADVAN(*) 1 GM in NS 0.9% 50 ML* 50 ML IVPB SCH ×3 (07:18)
[2019-03-12] MEDS ORDERED: Insulin LISPRO* 1 UNITS UNIT SUBCUT SCH (07:35)
[2019-03-12] MEDS: Insulin LISPRO* 1 UNITS UNIT SUBCUT SCH (07:37)
[2019-03-12] MEDS: Docusate CAP* 100 MG PO SCH (08:27)
[2019-03-12] MEDS: Vitamin THERAPEUTIC TAB PO SCH ×2 (08:51→08:54)
[2019-03-12] MEDS ORDERED: Ascorbic Acid TAB* 500 MG PO SCH (09:00)
[2019-03-12] MEDS ORDERED: metFORMIN* 500 MG TAB PO SCH (09:00)
[2019-03-12] MEDS ORDERED: Cetirizine* 10 MG TAB PO SCH (09:00)
--- NOTE | 2019-03-12 09:18 | PN ---
Progress Note - Progress Note Date of Service: 03/12/19 SOAP: Subjective: []Patient seen and examined at bedside. She feels well without complaints. Pain is well controlled this morning. Denies CP, SOB, dizziness, nausea Objective: [] Gen: Appears well, NAD LLE: Left shoulder dressing CDI, wearing sling, drain removed with tip intact. Able to flex/ extend at wrist and MCPs. Okay and thumbs up intact. Sensation intact to light touch distally, radial pulse 2+, capillary refill less than two seconds distally Assessment: [] left shoulder removal of hardware and reverse arthroplasty Plan: []drain d/c'ed NWB ITA PT/OT today lovenox while in hospital post op abx x 3 doses DC home today Vital Signs Temp 97.9 F 03/12/19 07:27 Pulse 73 03/12/19 07:27 Resp 18 03/12/19 08:51 BP 132/77 03/12/19 07:27 Pulse Ox 96 03/12/19 07:34 Intake & Output 03/11/19 03/12/19 03/12/19 18:59 06:59 18:59 Intake Total 2300 1785 230 Output Total 140 2520 Balance 2160 -735 230 Intake: IV Fluids 1700 980 LR 1700 980 IVPB 55 ABX - CEFAZOLIN 55 Oral 600 750 230 Output: Hemovac Amount #1 140 20 Urine 0 2500 Other: # Bowel Movements 0 Laboratory Last Values Hgb 8.3 g/dL (12.0-16.0) L 03/12/19 06:17 Hct 25 % (35-47) L 03/12/19 06:17 Plt Count 234 10^3/uL (150-450) 03/12/19 06:17 MPV 8.3 fL (7.4-10.4) 03/12/19 06:17 Sodium 129 mmol/L (135-145) L 03/12/19 06:17 Potassium 3.9 mmol/L (3.5-5.0) 03/12/19 06:17 Chloride 95 mmol/L (101-111) L 03/12/19 06:17 Carbon Dioxide 29 mmol/L (22-32) 03/12/19 06:17 Anion Gap 5 mmol/L (2-11) 03/12/19 06:17 BUN 15 mg/dL (6-24) 03/12/19 06:17 Creatinine 0.94 mg/dL (0.51-0.95) 03/12/19 06:17 Est GFR ( Amer) 74.3 (>60) 03/12/19 06:17 Est GFR (Non-Af Amer) 61.4 (>60) 03/12/19 06:17 BUN/Creatinine Ratio 16.0 (8-20) 03/12/19 06:17 Glucose 161 mg/dL (70-100) H 03/12/19 06:17 POC Glucose (mg/dL) 81 mg/dL (70-100) 03/12/19 07:21 Calcium 8.3 mg/dL (8.6-10.3) L 03/12/19 06:17
--- NOTE | 2019-03-12 09:30 | DS ---
Orthopedic Discharge Summary - Discharge Summary Date of Admission:03/11/19 Date of Discharge: 03/12/19 Date of Surgery: 03/11/19 Attending Orthopedic Provider: Dr Noriega Pre-operative Diagnosis: left shoulder pain Operative Procedure: left shoulder removal of hardware and reverse arthroplasty Disposition of Patient: home Condition of Patient: stable History: DEANDRE LEE is a 58 year old F with years of increasingly severe left shoulder pain. Patient has failed conservative management and has elected to undergo a left shoulder removal of hardware and reverse arthroplasty Hospital Course: DEANDRE was admitted to [facility] on 03/11/19. Patient underwent a [left shoulder removal of hardware and reverse arthroplasty ] without complication followed by a brief recovery in PACU and transfer to the Short Stay Surgical Unit in stable condition. Our hospitalist service, physical therapy and occupational therapy also participated in this patients care. Post- op day 1: patient was alert and in no acute distress. Dressing was clean, dry and intact. Operative extremity wrist and MCP flexion and extension intact, NVI distally. Drain pulled with tip intact, tolerated well by the patient. Patient was deemed to be medically and orthopedically stable for discharge. Physical therapy goals were met. Home Medications Medication Instructions Recorded Confirmed Type Fexofenadine (NF) [Karoline 180 180 mg PO QAM 03/22/13 03/11/19 History (NF)] Triamcinolone NASAL SPRAY* 1 mg NASAL DAILY PRN 03/22/13 03/11/19 History [Nasacort Aq Nasal [place]*] metFORMIN* [Glucophage 500 MG TAB 1,000 mg PO BID 01/27/16 03/11/19 History *] Ascorbic Acid TAB* [Vitamin C 1,000 mg PO QAM 01/31/16 03/11/19 History TAB*] EPINEPHrine [Epipen 2-Tyree] 0.3 mg IJ ONCE #1 auto.injct 10/31/17 03/11/19 Rx Meloxicam 7.5 mg PO BID PRN 11/26/18 03/11/19 History Olopatadine 0.2% (NF) [Pataday 1 drop BOTH EYES DAILY PRN 11/26/18 03/11/19 History 0.2% (NF)] Omeprazole 20 mg PO DAILY PRN 11/26/18 03/11/19 History Acetaminophen TAB* [Tylenol TAB*] 975 mg PO Q8HR tab 03/12/19 Rx Docusate CAP* [Colace Cap*] 100 mg PO BID cap 03/12/19 Rx oxyCODONE/Acetamin 5/325 MG* 1 tab PO Q4H PRN tab MDD 8 03/12/19 Rx [Percocet 5/325 TAB*] oxyCODONE/Acetamin 5/325 MG* 2 tab PO Q4H PRN #30 tab MDD 8 03/12/19 Rx [Percocet 5/325 TAB*] Discharge Instructions following Orthopedic Surgery: Activity: * Nonweightbearing left upper extremity * Continue physical therapy and occupational therapy exercises as shown. Nonweightbearing operative extremity. NO active range of motion of the shoulder , passive shoulder range of motion okay to 90 degrees forward flexion and abduction. No passive shoulder ROM past 25 degrees external rotation. Ok Active ROM elbow wrist and hand Wound care: * OK to shower on post-op day 3, no bathing, swimming, or submerging wound. * Use gentle soap, pat dry. Cover with gauze, SEPIDEH wrap or tape. Call Orthopedic office for: * Increased drainage * Redness * Increased pain * Fever Go to ER with shortness of breath or chest pain. Diet: * Regular diet * Increase fluids and fiber to prevent constipation. * Continue to use stool softeners, call office if no bowel motion within 48 hours. Medications See Home Medication List in your packet for medications that you should take after discharge. Pain Control: Percocet Dosin/325 mg 1 for moderate pain and 2 tabs for severe pain by mouth every 4 hours as needed for pain. Maximum of 8 tabs per day. hold for sedation, wean off as soon as pain allows Please note that Percocet contains Tylenol (acetaminophen). Maximum daily dose of Tylenol is 4000 mg from all sources. Antibiotics are required prior to any dental work. FOLLOW UP: Follow up with [Leann] Within 10-14 days, call for appointment Please call our office with any questions or concerns ([phone]) [facility]
[2019-03-12 11:56] VITALS: BP 137/61
[2019-03-12] MEDS ORDERED: Enoxaparin(*) 40 MG/0.4 ML SYR SUBCUT SCH (12:00)
[2019-03-13] MEDS ORDERED: Bisacodyl SUPP* 10 MG SUPP PR PRN (10:03)
== END 2019-03-12 14:10 | disposition home or self-care (01) | DRG 315 ==
LOC: AA 05:36 → SSU 10:03
PROVIDERS: ADMIT Orthopaedic Surgery; ATTEND Orthopaedic Surgery
PROC: 0RPK04Z Removal of Internal Fixation Device from Left Shoulder Joint, Open Approach (ICD-10-PCS; 2019-03-11)
PROC: 0RRK00Z Replacement of Left Shoulder Joint with Reverse Ball and Socket Synthetic Substitute, Open Approach (ICD-10-PCS; principal; 2019-03-11 07:30)
DX: M19.112 Post-traumatic osteoarthritis, left shoulder (principal); Z68.41 Body mass index [BMI] 40.0-44.9, adult; E11.9 Type 2 diabetes mellitus without complications; J30.9 Allergic rhinitis, unspecified; E66.9 Obesity, unspecified; M75.112 Incomplete rotator cuff tear or rupture of left shoulder, not specified as traumatic; G43.909 Migraine, unspecified, not intractable, without status migrainosus; Z92.21 Personal history of antineoplastic chemotherapy; Z82.3 Family history of stroke; Z72.89 Other problems related to lifestyle; Z88.1 Allergy status to other antibiotic agents; Z88.2 Allergy status to sulfonamides; Z88.5 Allergy status to narcotic agent; Z88.0 Allergy status to penicillin; Z88.8 Allergy status to other drugs, medicaments and biological substances; Z91.040 Latex allergy status
CPT/HCPCS: 36415; 80048; 85014; 85018; 85049; 88300; 88304; 88311; 97530; A9270-GY; C1713; C1776; J0690; J1100; J1170; J1650; J1885; J2250; J2405; J2704; J2795; J3010; J3490